=== PATIENT | male | born 1970 | race Two or more races ===

== ENCOUNTER 2017-04-22 07:13 | Day surgery (SDC) | payer BC ==
[2017-04-22] VITALS (7 sets, daily range): BP systolic 112–132; BP diastolic 68–78
[~2017-04-22] VITALS: Ht 180.3 cm; Wt 91.6 kg
--- NOTE | 2017-04-22 07:35 | Pre-Procedure Note/Attestation ---
Pre-Procedure Note/Attestation Complete Prior to Procedure Procedure Narrative: egd Indications for Procedure Pre-Operative Diagnosis: GERD Attestation I attest that I discussed the nature of the procedure; its benefits; risks and complications; and alternatives (and the risks and benefits of such alternatives ), prior to the procedure, with the patient (or the patient's legal solar sales representative and assessor). I attest that, if there was a reasonable possibility of needing a blood transfusion, the patient (or the patient's legal solar sales representative and assessor) was given the [facility] standardized written summary, pursuant to the Clifford Juancho Blood Safety Act ([place] Health and Safety Code # 1645, as amended). I attest that I re-evaluated the patient just prior to the surgery and that there has been no change in the patient's H&P, except as documented below: AMY QUINTANILLA Apr 22, 2017 07:35
--- NOTE | 2017-04-22 07:36 | Short Stay Surgery H&P ---
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 Patient History Allergies: Coded Allergies: No Known Allergies (Unverified , 04/19/17) PAST MEDICAL HISTORY: (1) GERD (gastroesophageal reflux disease) Past Surgeries: Social History: Review of Systems Cardiovascular: Reports: no symptoms Respiratory: Reports: no symptoms Skeletal: Reports: no symptoms Gastrointestinal: Reports: no symptoms Genitourinary: Reports: no symptoms Neurologic: Reports: no symptoms Endocrine: Reports: no symptoms Hematologic: Reports: no symptoms Physical Exam Skin: normal HENT: normal Heart: normal Lungs: normal Abdomen: normal Extremities: normal Plan Plan of Care egd Final Diagnosis: Attestation Are the patient's medical conditions optimized for surgery? Attestation Response: yes AMY QUINTANILLA Apr 22, 2017 07:36
[2017-04-22] MEDS ORDERED: ZANTAC150 MG ORAL (07:43)
[2017-04-22] MEDS ORDERED: PROTONIX40 MG ORAL (07:43)
[2017-04-22] MEDS ORDERED: LR 1000ml ONE (08:00)
[2017-04-22] MEDS ORDERED: Propofol 10mg/ml 20ml IV ONE (08:00)
[2017-04-22] MEDS ORDERED: Lidocaine 1% MPF 10mg/ml 5ml ONE (08:00)
--- NOTE | 2017-04-22 08:18 | Endoscopy Procedure Note ---
Endoscopy Procedure Note Indication for Procedure: gerd Procedures Performed: EGD Operative Findings/Diagnosis: gastritis Specimen: yes Pt Tolerated Procedure Well: Yes Estimated Blood Loss: none Anesthesiologist: tirso Anesthesia: MAC Implant(s) used?: No 50 yrs or older w/o bx or poly: Not Applicable 10yrs. F/U not recommended: Not Applicable AMY QUINTANILLA Apr 22, 2017 08:18
--- NOTE | 2017-04-22 08:30 | Immediate Post-Op Evaluation ---
Immediate Post-Op Evalulation Immediate Post-Op Evalulation Procedure: EGD Date of Evaluation: Apr 22, 2017 Time of Evaluation: 08:25 IV Fluids: 500 Blood Pressure Systolic: 119 Blood Pressure Diastolic: 75 Pulse Rate: 63 Respiratory Rate: 14 O2 Sat by Pulse Oximetry: 99 Temperature (Fahrenheit): 97.8 Nausea: No Vomiting: No Complications none Patient Status: awake, reacts Hydration Status: adequate Drug: none ROSY DIXON CRNA Apr 22, 2017 08:30
--- NOTE | 2017-04-22 08:31 | Anethesia Preoperative Eval ---
Anesthesia Pre-op PMH/ROS General Date of Evaluation: Apr 22, 2017 Time of Evaluation: 08:30 Anesthesiologist: drake ASA Score: ASA 2 Mallampati Score Class I : Soft palate, uvula, fauces, pillars visible Class II: Soft palate, uvula, fauces visible Class III: Soft palate, base of uvula visible Class IV: Only hard plate visible Mallampati Classification: Class II Surgeon: Charity Diagnosis: GERD Surgical Procedure: EGD Anesthesia History: none Family History: no anesthesia problems Allergies: Coded Allergies: No Known Allergies (Unverified , 04/19/17) Past Medical History Cardiovascular: Denies: CAD, HTN, NM, arrhythmia, other, valve dz Gastrointestinal/Genitourinary: Reports: GERD Neurologic/Psychiatric: Denies: CVA, TIA, dementia, depression/anxiety, other Endocrine: Denies: DM, hypothyroidism, other, steroids HEENT: Denies: MCGRATH (L), MCGRATH (R), cataract (L), cataract (R), glaucoma, other Hematology/Immune: Denies: DVT, anemia, bleeding disorder, other Musculoskeletal/Integumentary: Denies: DDD, DJD, OA, RA, edema, other PSxH Narrative: none Anesthesia Pre-op Phys. Exam Physician Exam Last Vital Signs Date Time Temp Pulse Resp B/P Pulse Ox O2 Delivery O2 Flow Rate FiO2 04/22/17 07:46 98.8 67 20 132/78 97 Room Air Constitutional: NAD Neurologic: CN 2-12 intact Cardiovascular: RRR Respiratory: CTA Gastrointestinal: S/NT/ND Airway Exam Mallampati Classification 2 Mallampati Score: Class II MO: full ROM: full Dentures: no lower, no upper Anesthesia Pre-op A/P Studies Pre-op Studies: EKG - sr Risk Assessment & Plan Plan: mac Status Change Before Surgery: No Pre-Antibiotics Drug: none ROSY DIXON CRNA Apr 22, 2017 08:31
--- NOTE | 2017-04-22 09:10 | 48 Hour Post Anesthesia Eval ---
Post Anesthesia Evaluation Procedure: EGD Date of Evaluation: Apr 22, 2017 Time of Evaluation: 09:10 Blood Pressure Systolic: 116 0: 74 Pulse Rate: 70 Respiratory Rate: 14 O2 Sat by Pulse Oximetry: 100 Airway: patent Nausea: No Vomiting: No Hydration Status: adequate Cardiopulmonary Status: stable Mental Status/LOC: patient returned to baseline Post-Anesthesia Complications: none Follow-up care needed: N/A ROSY DIXON CRNA Apr 22, 2017 09:10
--- NOTE | 2017-04-22 12:01 | Procedure Note ---
DATE OF PROCEDURE: 04/22/2017 SURGEON: Killian Nash M.D. PROCEDURE: Upper endoscopy with biopsy. ANESTHESIA: Per DIRECTOR SUPPLIER QUALITY, Bertha Tarrillcatie. INSTRUMENT: Olympus adult flexible upper endoscope and colonoscope. INDICATION: Chronic gastric reflux disease. REASON FOR PROCEDURE: The procedure, risks, benefits, and possible consequences, including hemorrhage, aspiration, perforation and infection, and alternative treatments, were explained to the patient/legal guardian by Dr. Killian Nash and the patient/legal guardian understood and accepted these risks. DESCRIPTION OF PROCEDURE: After informed consent was obtained and the patient was adequately sedated, Olympus upper endoscope was advanced from the mouth into the second portion of duodenum and retroflexion was performed in the stomach. The GE junction was found to be about 40 cm from the incisors. The patient has evidence of streaky erythema of the antrum. Random biopsy from gastric body and antrum was obtained to rule out H. pylori infection. mildly incompetent distal esophageal sphincter as it may be a small hiatal hernia. No obvious esophagitis, esophageal varices, gastric varices, gastric ulcers were seen. No obvious mass was seen. No obvious polyp was seen. No evidence of any obvious inlet patch. The patient tolerated the procedure well without any complication. SUMMARY FINDINGS: 1. Streaky erythema of the antrum, status post biopsy. 2. Incompetent lower esophageal sphincter with a small hiatal hernia. RECOMMENDATIONS: Follow up biopsy result and treat accordingly. Killian Nash M.D. DR: MANDEEP JOB#: [id number] CC:
== END 2017-04-23 10:10 | disposition home or self-care (01) ==
LOC: GAS 07:13 → EEVIPCON 08:00 → GAS 10:10
DX: K21.9 Gastro-esophageal reflux disease without esophagitis (principal); K22.0 Achalasia of cardia; K44.9 Diaphragmatic hernia without obstruction or gangrene
CPT/HCPCS: 43239; J2704; J7120; 94003; 94150